=== PATIENT | female | born 1985 | race Caucasian/White ===

== ENCOUNTER → 2018-07-11 | Outpatient (CLI) | payer SELFPAY ==
[2014-03-07 19:07] VITALS: BP 131/76
[~2018-07-11] MED LIST: AMOXICILLIN875 MG PO; NORCO 325 MG-51 TAB PO
== END ==
LOC: RAD 16:20
DX: M54.2 Cervicalgia (principal)

== ENCOUNTER → 2018-07-31 | Outpatient (CLI) | payer BC ==
[2014-03-07 19:07] VITALS: BP 131/76
== END ==
LOC: RAD 06:44
DX: M43.8X2 Other specified deforming dorsopathies, cervical region (principal); M43.6 Torticollis

== ENCOUNTER 2022-04-26 15:38 | Emergency (ER) | payer BC ==
[2022-04-26] MEDS ORDERED: LISINOPRIL10 MG (15:50)
[2022-04-26] MEDS ORDERED: PROTONIX20 M1 (15:50)
[2022-04-26] MEDS ORDERED: PAXIL10 M1 (15:50)
[2022-04-26] MEDS ORDERED: ACETAMINOPHEN-H1 TA2 PO (16:26)
[2022-04-26] MEDS ORDERED: CRUTCHES (16:30)
[2022-04-26 17:04] VITALS: BP 99/58
== END 2022-04-26 16:46 | disposition home or self-care (01) ==
LOC: ED 15:38
DX: M17.12 Unilateral primary osteoarthritis, left knee (principal); M23.92 Unspecified internal derangement of left knee; Z28.310 Unvaccinated for COVID-19
CPT/HCPCS: J1885; L1830